=== PATIENT | female | born 1985 | race Caucasian/White ===

== ENCOUNTER 2018-07-27 15:44 | Emergency (ER) | payer OTHER ==
--- OUTSIDE RECORDS SUMMARY | 2018-07-27 16:01 | XMS REPORT ---
:1985 External Reference #:[id number] Author Organization [employer] Address [address] [place] [address] [place] [address] Phone [phone] Care Team Providers Name Role Phone Karen Aragon MD Primary Care Physician Unavailable Payers Type Date Identification Numbers Payment Provider Subscriber Commercial Effective: Policy Number: [id number] Clark[employer] Christen Jacinto 2017 Medicaid PayID: [id number] [address] [address] [place] [address] Problems Date Description Provider Status Onset: 04/17/2018 Opioid abuse George Lima M.D.,FACP Active Onset: 04/17/2018 Viral hepatitis C George Lima M.D.,FACP Active Note: hospitalized w/ jaundice 2015 Onset: 04/17/2018 Major depressive disorder George Lima M.D.,FACP Active Onset: 06/12/2018 Moderate cigarette smoker George Lima M.D.,FACP Active (10-19 cigs/day) Family History Date Family Member(s) Problem(s) Comments General Cancer, Prostate Father 56 Father Alcoholism Father Depression Mother 56 Mother Hypertension First Son 4 First Daughter 16 First Brother 36 Second Brother 18 First Sister 19 : (age 82 Years) Maternal Grandmother due to Sudden Social History Type Date Description Comments Marital Status Occupation Disabled Cigarette Use 04/17/2018 Heavy tobacco smoker (more than 10 cigarettes/day) ETOH Use 04/17/2018 Denies alcohol use Smoking Patient is a current smoker, smokes every day Recreational Drug Use Formerly addicted to IV drugs Exercise Type/Frequency Does not exercise Contraceptive Methods Esure implant General Hx Text 3 children Sexual Hx text sexually active w/ Allergies, Adverse Reactions, Alerts Date Description Reaction Status Severity Comments 08/20/2012 Sulfa rash active 08/20/2012 Bactrim rash active 08/20/2012 Clindamycin rash active Medications Medication Date Status Form Strength Qnty SIG Indications Ordering Provider Venlafaxine HCL 07/17/20 Active Caps ER 150mg 30caps 1 po F33.1 Nik Castillo ER 18 24HR qam Masha Lima,FACP F11.20 Suboxone 07/17/2018 Active Film 8-2mg 28units 1 strip George Castillo twice [place], day Masha,FACP No Active 04/17/2018 - Hx Unknown Medications 04/17/2018 Venlafaxine HCL 04/17/2018 - Hx Caps ER 37.5mg 90caps 3 tabs by F33. George Castillo ER 07/17/2018 24HR mouth 1 Janie, every day Masha,FACP F11.20 Suboxone 04/17/2018 - Hx Film 12-3mg 14units 1 strip George Castillo 07/17/2018 once a day Masha Lima,FACP Trinessa - Hx Tablets 0.18/0.215/ 1month 1 po qd Mahesh, 04/17/2018 0.25 mg-3 MD Karen Effexor - Hx Tablets 225mg 90tabs 1 po qd Mahesh, 04/17/2018 MD Karen Multi-Day - Hx Tablets 1 po qd Mahesh, Vitamins 04/17/2018 MD Karen Vicodin - Hx Tablets 5-500mg 50tabs 1-2 tablets Unknown 04/17/2018 every 4-6 hours as needed Flexeril - Hx Tablets 10mg 60tabs 1 po tid prn Unknown 04/17/2018 Immunizations CPT Code Status Date Vaccine Lot # [id number] Given 07/17/2018 Influenza Virus Vaccine, Quadrivalent, Split, [id number] Preservative Free Vital Signs Date Vital Result Comment 07/17/2018 Height 64 inches 5'4" Weight 173.00 lb Heart Rate 71 /min BP Systolic Sitting 112 mmHg BP Diastolic Sitting 60 mmHg Body Temperature 99.1 F O2 % BldC Oximetry 95 % BMI (Body Mass Index) 29.7 kg/m2 06/12/2018 Height 64 inches 5'4" Weight 168.00 lb Heart Rate 95 /min BP Systolic Sitting 110 mmHg BP Diastolic Sitting 60 mmHg Body Temperature 97.8 F O2 % BldC Oximetry 98 % BMI (Body Mass Index) 28.8 kg/m2 05/18/2018 Height 64 inches 5'4" Weight 172.00 lb Heart Rate 107 /min BP Systolic 112 mmHg BP Diastolic 70 mmHg O2 % BldC Oximetry 97 % BMI (Body Mass Index) 29.5 kg/m2 04/17/2018 Height 64 inches 5'4" Weight 169.50 lb Heart Rate 61 /min BP Systolic 109 mmHg BP Diastolic 59 mmHg Body Temperature 97.4 F O2 % BldC Oximetry 100 % BMI (Body Mass Index) 29.1 kg/m2 08/20/2012 Weight 170.00 lb Heart Rate 86 /min BP Systolic Sitting 128 mmHg BP Diastolic Sitting 88 mmHg Results Test Date Test Result H/L Range Note Laboratory test finding 06/19/2018 Hepatitis C Rna TNP () 1 Quantitative Hepatitis B Mac AB Titer 06/19/2018 Hepatitis B Surface AB Immune Immune Hep B Surf AB Level 82.17 mIU/mL >12 HIV 1/2 AB Evaluation 06/19/2018 HIV 1 2 Antibody Nonreactive Nonreactive 2 Protein Electrophoresis 06/19/2018 Total Protein(Pep) 8.1 g/dL 6.3 - 7.9 Albumin 3.8 g/dL 3.4-4.7 Alpha-1 Globulin 0.4 g/dL 0.1-0.3 Alpha-2 Globulin 1.1 g/dL 0.6-1.0 Beta Globulin 1.0 g/dL 0.7-1.2 Gamma Globulin 1.9 g/dL 0.6-1.6 Albumin/Globulin Ratio 0.87 Impression See Comment 3 Lipid Profile (Trig/Chol/HDL) 06/19/2018 Triglycerides 101 mg/dL 4 Cholesterol 221 mg/dL 5 HDL Cholesterol 56.9 mg/dL 6 LDL Cholesterol 144 mg/dL 7 Laboratory test finding 06/19/2018 Glucose 83 mg/dL 70-100 Drug Abuse 20 Urine 05/18/2018 Urine Amphetamine Negative ng/mL 8 Urine Barbiturates Negative ng/mL 9 Urine Benzodiazepines Negative ng/mL 10 Urine Cocaine Negative ng/mL 11 Urine Phencyclidine Negative ng/mL Cutoff: 25 Urine Tetrahydrocannabinol Negative ng/mL Cutoff: 50 12 Creatinine, Urine 93.9 mg/dL Specific Kam[place] 1.011 pH 7.7 Oxidants Negative 13 Adulterants Comment Normal Codeine, Ur Not Detected ng/mL Cutoff: 25 14 Uiqokkd-3-inaz-glucuronide, Ur Not Detected ng/mL 15 Morphine, Ur Not Detected ng/mL Cutoff: 25 16 Jshlegml-6-ujif-glucuronide, U Not Detected ng/mL 17 6-monoacetylmorphine, Ur Not Detected ng/mL Cutoff: 25 18 Hydrocodone, Ur Not Detected ng/mL Cutoff: 25 19 Norhydrocodone, Ur Not Detected ng/mL Cutoff: 25 20 Dihydrocodeine, Ur Not Detected ng/mL Cutoff: 25 21 Hydromorphone, Ur Not Detected ng/mL Cutoff: 25 22 Mrgispibajcpd7afptomxgpqnlrft Not Detected ng/mL 23 Oxycodone, Ur Not Detected ng/mL Cutoff: 25 24 Noroxycodone, Ur Not Detected ng/mL Cutoff: 25 25 Oxymorphone, Ur Not Detected ng/mL Cutoff: 25 26 Aneqzmsyisv-3-zuzc-glucuronide Not Detected ng/mL 27 Noroxymorphone, Ur Present ng/mL Cutoff: 25 28 Fentanyl, Ur Not Detected ng/mL Cutoff: 2 29 Norfentanyl, Ur Not Detected ng/mL Cutoff: 2 30 Meperidine, Ur Not Detected ng/mL Cutoff: 25 31 Normeperidine, Ur Not Detected ng/mL Cutoff: 25 32 Naloxone, Ur Not Detected ng/mL Cutoff: 25 33 Wbhovcov-0-vuzo-glucuronide, U Present ng/mL 34 Methadone, Ur Not Detected ng/mL Cutoff: 25 35 Eddp, Ur Not Detected ng/mL Cutoff: 25 36 Propoxyphene, Ur Not Detected ng/mL Cutoff: 25 37 Norpropoxyphene, Ur Not Detected ng/mL Cutoff: 25 38 Tramadol, Ur Not Detected ng/mL Cutoff: 25 39 O-desmethyltramadol, Ur Not Detected ng/mL Cutoff: 25 40 Tapentadol, Ur Not Detected ng/mL Cutoff: 25 41 N-desmethyltapentadol, Ur Not Detected ng/mL Cutoff: 50 42 Adrvwurbsk-yoxd-qkqecrpnqfs, U Not Detected ng/mL 43 Buprenorphine, Ur Present ng/mL Cutoff: 5 44 Norbuprenorphine, Ur Present ng/mL Cutoff: 5 45 Norbuprenorphine glucuronide Present ng/mL Cutoff: 20 46 Opioid Interpretation See Comment 47 Drug Abuse 20 Urine 04/17/2018 Urine Amphetamine Negative ng/mL 48 Urine Barbiturates Negative ng/mL 49 Urine Benzodiazepines Negative ng/mL 50 Urine Cocaine Negative ng/mL 51 Urine Phencyclidine Negative ng/mL Cutoff: 25 Urine Tetrahydrocannabinol Negative ng/mL Cutoff: 50 52 Creatinine, Urine 58.0 mg/dL Specific Kamiah 1.011 pH 7.4 Oxidants Negative 53 Adulterants Comment Normal Codeine, Ur Not Detected ng/mL Cutoff: 25 54 Dkzetyq-3-dxpq-glucuronide, Ur Not Detected ng/mL 55 Morphine, Ur Not Detected ng/mL Cutoff: 25 56 Htismuky-4-dluu-glucuronide, U Not Detected ng/mL 57 6-monoacetylmorphine, Ur Not Detected ng/mL Cutoff: 25 58 Hydrocodone, Ur Not Detected ng/mL Cutoff: 25 59 Norhydrocodone, Ur Not Detected ng/mL Cutoff: 25 60 Dihydrocodeine, Ur Not Detected ng/mL Cutoff: 25 61 Hydromorphone, Ur Not Detected ng/mL Cutoff: 25 62 Kclyqpzflwtpv4ngbcolcxvjfpfvz Not Detected ng/mL 63 Oxycodone, Ur Not Detected ng/mL Cutoff: 25 64 Noroxycodone, Ur Not Detected ng/mL Cutoff: 25 65 Oxymorphone, Ur Not Detected ng/mL Cutoff: 25 66 Xujmneycyyd-3-xxbh-glucuronide Not Detected ng/mL 67 Noroxymorphone, Ur Not Detected ng/mL Cutoff: 25 68 Fentanyl, Ur Not Detected ng/mL Cutoff: 2 69 Norfentanyl, Ur Present ng/mL Cutoff: 2 70 Meperidine, Ur Not Detected ng/mL Cutoff: 25 71 Normeperidine, Ur Not Detected ng/mL Cutoff: 25 72 Naloxone, Ur Not Detected ng/mL Cutoff: 25 73 Vujdrfes-2-ogzs-glucuronide, U Not Detected ng/mL 74 Methadone, Ur Not Detected ng/mL Cutoff: 25 75 Eddp, Ur Not Detected ng/mL Cutoff: 25 76 Propoxyphene, Ur Not Detected ng/mL Cutoff: 25 77 Norpropoxyphene, Ur Not Detected ng/mL Cutoff: 25 78 Tramadol, Ur Not Detected ng/mL Cutoff: 25 79 O-desmethyltramadol, Ur Not Detected ng/mL Cutoff: 25 80 Tapentadol, Ur Not Detected ng/mL Cutoff: 25 81 N-desmethyltapentadol, Ur Not Detected ng/mL Cutoff: 50 82 Heorzqldcf-tqgv-mfogbyywbqh, U Not Detected ng/mL 83 Buprenorphine, Ur Not Detected ng/mL Cutoff: 5 84 Norbuprenorphine, Ur Present ng/mL Cutoff: 5 85 Norbuprenorphine glucuronide Present ng/mL Cutoff: 20 86 Opioid Interpretation See Comment 87 1 HCV RNA Detect/Quant, S was cancelled on 06/20/2018 at 09:59; Test is cancelled due to insufficient specimen volume. Please submit a frozen specimen under separate order. Test Performed by: [facility] [address] [place] [address] 2 It is recognized that currently available assays for the detection of antibodies to HIV-1 and/or HIV-2 may not detect all infected individuals. HIV antibodies may be undetectable in some stages of the infection and in some clinical conditions. The performance of this assay has not been established for populations of infants or children. Assayed by Chemiluminescence Microparticle Immunoassay on the Siemens Advia Centaur CP. Values obtained with different methods or kits cannot be used interchangeably.The diagnostic specificity of the ADVIA Centaur 1/O/2 Enhanced assay in the low risk population was 99.90% (6052/6058) with a 95% confidence interval of 99.78 to 99.96%. 3 RESULT: Polyclonal hypergammaglobulinemia Test Performed by: [facility] [address] [place] [address] 4 Desirable: <150 Borderline High: 150-199 High: 200-499 Very High: >500 5 Desirable: <200 Borderline High: 200-239 High: >239 6 Low: <40 Desirable: 40-60 High: >60 7 Desirable: <100 Near Optimal: 100-129 Borderline High: 130-159 High: 160-189 Very High: >189 8 REFERENCE VALUE Cutoff: 500 9 REFERENCE VALUE Cutoff: 200 10 REFERENCE VALUE Cutoff: 100 11 REFERENCE VALUE Cutoff: 150 12 ADDITIONAL INFORMATION This report is intended for use in clinical monitoring or management of patients. It is not intended for use in employment-related testing. 13 REFERENCE VALUE Cutoff: 200 mg/L 14 Tylenol 3 15 Metabolite of codeine REFERENCE VALUE Cutoff: 100 16 Mary Duffy, Contin; Also a minor metabolite (10%) of codeine and can be seen in low concentrations (<2,000 ng/mL) with poppy seed ingestion. 17 Metabolite of morphine REFERENCE VALUE Cutoff: 100 18 Metabolite of heroin 19 Lortab, [place], Vicodin; Also a very minor metabolite of codeine and impurity (<1%) of oxycodone. 20 Metabolite of hydrocodone 21 Metabolite of hydrocodone 22 Dilaudid, Exalgo; Also a metabolite of hydrocodone and a minor (<5%) metabolite of morphine. 23 Metabolite of hydromorphone REFERENCE VALUE Cutoff: 100 24 Endocet, Percocet, Oxycontin 25 Metabolite of oxycodone 26 Numorphan, Opana; Also a metabolite of oxycodone. 27 Metabolite of oxymorphone REFERENCE VALUE Cutoff: 100 28 Metabolite of oxymorphone 29 Actiq, Duragesic, Fentora 30 Metabolite of fentanyl 31 Demerol 32 Metabolite of meperidine 33 Narcan 34 Metabolite of naloxone REFERENCE VALUE Cutoff: 100 35 Dolophine 36 Metabolite of methadone 37 Darvon, Darvocet 38 Metabolite of propoxyphene 39 Tradol, Ultram, Ultracet 40 Metabolite of tramadol 41 Nucynta 42 Metabolite of tapentadol 43 Metabolite of tapentadol REFERENCE VALUE Cutoff: 100 44 Buprenex, Suboxone 45 Metabolite of buprenorphine 46 Metabolite of buprenorphine 47 Test detected the presence of buprenorphine and its metabolites (norbuprenorphine and norbuprenorphine glucuronide) along with naloxone metabolites (yeyfqibg-3-kckp-glucuronide and noroxymorphone/nornaloxone). Suspect use of buprenorphine with naloxone (e.g. Suboxone) within the past three days. ADDITIONAL INFORMATION This test was developed and its performance characteristics determined by [facility] in a manner consistent with CLIA requirements. This test has not been cleared or approved by the U.S. Food and Drug Administration. Test Performed by: [facility] [address] [place] [address] 48 REFERENCE VALUE Cutoff: 500 49 REFERENCE VALUE Cutoff: 200 50 REFERENCE VALUE Cutoff: 100 51 REFERENCE VALUE Cutoff: 150 52 ADDITIONAL INFORMATION This report is intended for use in clinical monitoring or management of patients. It is not intended for use in employment-related testing. 53 REFERENCE VALUE Cutoff: 200 mg/L 54 Tylenol 3 55 Metabolite of codeine REFERENCE VALUE Cutoff: 100 56 Mary Duffy, Contin; Also a minor metabolite (10%) of codeine and can be seen in low concentrations (<2,000 ng/mL) with poppy seed ingestion. 57 Metabolite of morphine REFERENCE VALUE Cutoff: 100 58 Metabolite of heroin 59 Lortab, [place], Vicodin; Also a very minor metabolite of codeine and impurity (<1%) of oxycodone. 60 Metabolite of hydrocodone 61 Metabolite of hydrocodone 62 Dilaudid, Exalgo; Also a metabolite of hydrocodone and a minor (<5%) metabolite of morphine. 63 Metabolite of hydromorphone REFERENCE VALUE Cutoff: 100 64 Endocet, Percocet, Oxycontin 65 Metabolite of oxycodone 66 Numorphan, Opana; Also a metabolite of oxycodone. 67 Metabolite of oxymorphone REFERENCE VALUE Cutoff: 100 68 Metabolite of oxymorphone 69 Actiq, Duragesic, Fentora 70 Metabolite of fentanyl 71 Demerol 72 Metabolite of meperidine 73 Narcan 74 Metabolite of naloxone REFERENCE VALUE Cutoff: 100 75 Dolophine 76 Metabolite of methadone 77 Darvon, Darvocet 78 Metabolite of propoxyphene 79 Tradol, Ultram, Ultracet 80 Metabolite of tramadol 81 Nucynta 82 Metabolite of tapentadol 83 Metabolite of tapentadol REFERENCE VALUE Cutoff: 100 84 Buprenex, Suboxone 85 Metabolite of buprenorphine 86 Metabolite of buprenorphine 87 Test detected the presence of norbuprenorphine and norbuprenorphine glucuronide which are metabolites of buprenorphine. Suspect use of buprenorphine within the past three days. Test detected the presence of norfentanyl (metabolite of fentanyl) only. Suspect use of fentanyl within the past three days. ADDITIONAL INFORMATION This test was developed and its performance characteristics determined by [facility] in a manner consistent with CLIA requirements. This test has not been cleared or approved by the U.S. Food and Drug Administration. Test Performed by: [facility] [address] [place] [address] Procedures Description No Information Encounters Type Date Location Provider CPT E/M Dx Office Visit 07/17/2018 [facility] George Lima, [address] F11.20 2:00p - Marquita Flanagan,FACP B18.2 Office Visit 06/12/2018 2:40p [facility] George Lima, 27711 F11.20 - Marquita Flanagan,FACP B18.2 F33.1 Office Visit 05/18/2018 2:40p [facility] Internal George Lima, 15563 F11.20 Medicine - lena Voss M.D.,FACP B18.2 F33.1 Office Visit 04/17/2018 3:40p [facility] George Lima, [address]27 F11.20 - Marquita Flanagan,FACP B18.2 F33.1 Office Visit 09/03/2012 2:30p [facility] Scott Montes M.D. 43146 724.2 AT [place] Office Visit 08/20/2012 2:30p [facility] Scott Montes M.D. 01889 724.2 AT [place] Plan of Care Future Appointment(s):08/28/2018 2:00 pm - George Lima M.D.,FACP at [facility] Ldhaxhghv60/18/2018 - George Lima M.D.,FACPF11.20 Opioid dependence, uncomplicatedNew Medication:Venlafaxine HCL ER 150 mgComments :Patient doing well on buprenorphine/naltrexone, no major cravings, no relapse on opiates. [employer] PROGRAM COORDINATOR checked, patient not obtaining opiates through other providers.UDS up to date. I have changed your suboxoneprescription to 8 MG strips. You may take up to two strips daily. Please continue to follow up with AAA meetings and counseling. I have increased your Venlafaxine medication to 1 tablet of Venlafaxine 150 MG daily.B18.2 Chronic viral hepatitis CComments: Please complete bloodwork to check for Hepatitis C as soon as you can. We will give you a call regarding your results and discuss treatment options if necessary.
[2018-07-27 16:11] VITALS: BP 107/51
--- NOTE | 2018-07-27 16:18 | UC ---
General HPI - HPI Summary HPI Summary: per health service worker "c/o "waking up 9/25 am with swelling of right hand/fingers and right foot; not painful -no h/o injury" -She reports that she had this earlier this year and was treated successfully with oral doxycycline. She complains of feeling tired over the past few days as well. She thinks her right foot may be due to a spider or bug bite. She denies any IV drug use. Does admit to IV drug use prior to 9 months ago. States she has been clean since then and is on Suboxone. No fevers or chills. No discharge. - History of Current Complaint Chief Complaint: UCUpperExtremity Stated Complaint: RIGHT HAND AND FOOT SWELLING Time Seen by Provider: 07/27/18 16:17 Hx Last Menstrual Period: had baby in Sep, no menses yet Pain Intensity: 0 - Allergy/Home Medications Allergies/Adverse Reactions: Allergies Allergy/AdvReac Type Severity Reaction Status Date / Time clindamycin Allergy Intermediate Rash Verified 07/27/18 16:13 Sulfa (Sulfonamide Allergy Intermediate Rash Verified 07/27/18 16:13 Antibiotics) Home Medications: Home Medications Buprenorphine HCl/Naloxone HCl [Suboxone 8 mg-2 mg Sl Film] 1 mis SL BID [History Confirmed 07/27/18] Venlafaxine ER (NF) [Effexor ER (NF)] 150 mg PO DAILY 07/27/18 [History Confirmed 07/27/18] PMH/Surg Hx/FS Hx/Imm Hx Previously Healthy: Yes GI/ History: Other - untreated hepatitis C. Opiate abuse. History of IV drug use. Other GI/ History: untreated hep C, IV drug use history, Opiate History. 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 Eyes: Negative ENT: Negative Respiratory: Negative Cardiovascular: Negative Gastrointestinal: Negative Genitourinary: Negative Motor: Negative Neurovascular: Negative Musculoskeletal: Negative Neurological: Negative Psychological: Negative Is Patient Immunocompromised?: No All Other Systems Reviewed And Are Negative: Yes Physical Exam Triage Information Reviewed: Yes Appearance: Well-Appearing, No Pain Distress, Well-Nourished Vital Signs: Initial Vital Signs Temp 97.8 F 07/27/18 16:02 Pulse 71 07/27/18 16:02 Resp 17 07/27/18 16:02 BP 107/51 07/27/18 16:02 Pulse Ox 100 07/27/18 16:02 Eye Exam: Normal ENT Exam: Normal Neck exam: Normal Neck: Positive: Supple, Nontender, No Lymphadenopathy Respiratory Exam: Normal Respiratory: Positive: Lungs clear, Normal breath sounds, No respiratory distress, No accessory muscle use Cardiovascular Exam: Normal Cardiovascular: Positive: RRR, No Murmur, Pulses Normal Abdomen Description: Positive: Nontender, Soft Musculoskeletal: Positive: Other: - Right extensor hand with mild nonpitting edema. It is slightly warm to touch. Sensation is intact. Full range of motion. Right foot with small little erythematous spots that could be bug bites. Trace nonpitting edema compared to left foot. Full range of motion, capillary refill brisk. Sensation intact. Strength intact. Neurological Exam: Normal Psychological Exam: Normal Skin Exam: Normal Course/Dx - Course Course Of Treatment: Probable right hand mild cellulitis, right foot minimal edema likely due to bug bite. - Differential Dx - Multi-Symptom Differential Diagnoses: Other - edema, cellulitis Provider Diagnoses: right hand cellulitis Discharge - Sign-Out/Discharge Documenting (check all that apply): Patient Departure All imaging exams completed and their final reports reviewed: No Studies - Discharge Plan Condition: Stable Disposition: HOME Prescriptions: Doxycycline Monohydrate 100 mg PO BID #20 cap Patient Education Materials: Cellulitis (DC) Referrals: George Lima MD [Primary Care Provider] - 4 Days Additional Instructions: Make sure to take a probiotic daily while on antibiotics to help prevent a potential complication of antibiotic use called c diff. Some well known brands that can be found OTC are florastor, align and [employer]. Make sure to complete the entire prescription unless advised otherwise by your health care provider. -If symptoms worsen you should go to the ER as you will need labwork done and possible IV antibiotics. - Billing Disposition and Condition Condition: STABLE Disposition: Home
== END 2018-07-27 16:38 | disposition home or self-care (01) ==
LOC: UCCORT 15:44
DX: L03.90 Cellulitis, unspecified (principal); Z88.1 Allergy status to other antibiotic agents; F11.10 Opioid abuse, uncomplicated; F17.210 Nicotine dependence, cigarettes, uncomplicated
CPT/HCPCS: 99212; G0463

== ENCOUNTER 2018-12-26 10:50 | Emergency (ER) | payer OTHER ==
--- OUTSIDE RECORDS SUMMARY | 2018-12-26 11:05 | XMS REPORT | Continuity of Care Document ---
:1985 External Reference #:[id number] Author Name Theresa Guido Care Team Providers Name Role Phone George Lima MD Primary Care Physician Unavailable Payers Date Identification Numbers Payment Provider Subscriber Effective: 2017 Policy Number: [id number] [employer] Medicaid Christen Jacinto PayID: [id number] [address] [address] [place] [address] Advance Directives Description No Information Available Problems Date Description Provider Status Onset: 04/17/2018 Opioid abuse George Lima M.D.,FACP Active Onset: 04/17/2018 Viral hepatitis C George Lima M.D.,VANNESA Active Note: hospitalized w/ jaundice 2015, chronic active Onset: 04/17/2018 Major depressive disorder George Lima M.D.,FACP Active Onset: 06/12/2018 Moderate cigarette smoker George Lima M.D.,FACP Active (10-19 cigs/day) Family History Date Family Member(s) Observation Comments General Cancer, Prostate Father 56 Father Alcoholism Father Depression Mother 56 Mother Hypertension First Son 4 First Daughter 16 First Brother 36 Second Brother 18 First Sister 19 : (age 82 Years) Maternal Grandmother due to Sudden Social History Type Date Description Comments Sex Unknown Marital Status Occupation Disabled Tobacco Use Reviewed: 04/17/18 Heavy tobacco smoker (more than 10 cigarettes/day) Smoking Status Reviewed: 12/25/18 Heavy tobacco smoker (more than 10 cigarettes/day) ETOH Use 04/17/2018 Denies alcohol use Tobacco Use Start: Unknown Patient is a current smoker, smokes every day Recreational Drug Use 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 daily Venlafaxine Active Caps ER 150mg 30caps 1 by [email or web address] Vazquez HCL ER 018 24HR mouth D. Burleson, every M.D.,FACP morning F11.20 Suboxone 07/17/2018 Active Film 8-2mg 28units 1 strip George Castillo sl twice Burleson, day M.D.,FACP No Active 04/17/2018 - Hx Unknown Medications 04/17/2018 Venlafaxine HCL 04/17/2018 - Hx Caps ER 37.5mg 90caps 3 tabs by Freida. George Castillo ER 07/17/2018 24HR mouth 1 Burleson, every day M.D.,FACP F11.20 Suboxone 04/17/2018 - Hx Film 12-3mg 14units 1 strip rupal Castillo 07/17/2018 once a day Janie, M.D.,FACP Trinessa - Hx Tablets 0.18/0.215/ 1month 1 [...] CPT Code Status Date Vaccine Lot # [id number] Given 09/27/2018 Hepatitis A Vaccine Adult Dosage [id number] Given 08/28/2018 Pneumonia Vaccine [id number] Given 07/17/2018 Influenza Virus Vaccine, Quadrivalent, Split, [id number] Preservative Free Vital Signs Date Vital Result Comment 12/25/2018 9:46am Height 64 inches 5'4" Weight 178.00 lb Heart Rate 60 /min BP Systolic Sitting 110 mmHg BP Diastolic Sitting 62 mmHg Respiratory Rate 14 /min Body Temperature 97.9 F BMI (Body Mass Index) 30.6 kg/m2 10/16/2018 10:59am Height 64 inches 5'4" Weight 178.00 lb Heart Rate 70 /min BP Systolic Sitting 110 mmHg BP Diastolic Sitting 70 mmHg Respiratory Rate 14 /min Body Temperature 100.0 F BMI (Body Mass Index) 30.6 kg/m2 09/27/2018 2:18pm Height 64 inches 5'4" Heart Rate 68 /min BP Systolic Sitting 112 mmHg BP Diastolic Sitting 80 mmHg Body Temperature 98.2 F O2 % BldC Oximetry 97 % 08/28/2018 1:55pm Height 64 inches 5'4" Weight 174.00 lb Heart Rate 68 /min BP Systolic 120 mmHg BP Diastolic 64 mmHg O2 % BldC Oximetry 98 % BMI (Body Mass Index) 29.9 kg/m2 07/17/2018 2:02pm Height 64 inches 5'4" Weight 173.00 lb Heart Rate 71 /min BP Systolic Sitting 112 mmHg BP Diastolic Sitting 60 mmHg Body Temperature 99.1 F O2 % BldC Oximetry 95 % BMI (Body Mass Index) 29.7 kg/m2 06/12/2018 2:57pm Height 64 inches 5'4" Weight 168.00 lb Heart Rate 95 /min BP Systolic Sitting 110 mmHg BP Diastolic Sitting 60 mmHg Body Temperature 97.8 F O2 % BldC Oximetry 98 % BMI (Body Mass Index) 28.8 kg/m2 05/18/2018 2:35pm Height 64 inches 5'4" Weight 172.00 lb Heart Rate 107 /min BP Systolic 112 mmHg BP Diastolic 70 mmHg O2 % BldC Oximetry 97 % BMI (Body Mass Index) 29.5 kg/m2 04/17/2018 3:32pm Height 64 inches 5'4" Weight 169.50 lb Heart Rate 61 /min BP Systolic 109 mmHg BP Diastolic 59 mmHg Body Temperature 97.4 F O2 % BldC Oximetry 100 % BMI (Body Mass Index) 29.1 kg/m2 08/20/2012 2:53pm Weight 170.00 lb Heart Rate 86 /min BP Systolic Sitting 128 mmHg BP Diastolic Sitting 88 mmHg Results Test Date Facility Test Result H/L Range Note Drug Abuse 11/16/2018 [facility] Urine Amphetamine Negative ng/ mL 1 [address] [place] [address] [phone] Urine Barbiturates Negative ng/mL 2 Urine Benzodiazepines Negative ng/mL 3 Urine Cocaine Negative ng/mL 4 Urine Phencyclidine Negative ng/mL Cutoff: 25 Urine Tetrahydrocannabinol Negative ng/mL Cutoff: 50 5 Creatinine, Urine 261.4 mg/dL Specific Coral 1.022 pH 5.5 Oxidants Negative 6 Adulterants Comment Normal Codeine, Ur Not Detected ng/mL Cutoff: 25 7 Knlepyu-4-ajfj-glucuronide, Ur Not Detected ng/mL 8 Morphine, Ur Not Detected ng/mL Cutoff: 25 9 Xmypxhbn-4-xsap-glucuronide, U Not Detected ng/mL 10 6-monoacetylmorphine, Ur Not Detected ng/mL Cutoff: 25 11 Hydrocodone, Ur Not Detected ng/mL Cutoff: 25 12 Norhydrocodone, Ur Not Detected ng/mL Cutoff: 25 13 Dihydrocodeine, Ur Not Detected ng/mL Cutoff: 25 14 Hydromorphone, Ur Not Detected ng/mL Cutoff: 25 15 Exysxwqlmjico0xndprsnaoiyfzfb Not Detected ng/mL 16 Oxycodone, Ur Not Detected ng/mL Cutoff: 25 17 Noroxycodone, Ur Not Detected ng/mL Cutoff: 25 18 Oxymorphone, Ur Not Detected ng/mL Cutoff: 25 19 Zjlwimstudw-6-nxdl-glucuronide Not Detected ng/mL 20 Noroxymorphone, Ur Present ng/mL Abnormal Cutoff: 25 21 Fentanyl, Ur Not Detected ng/mL Cutoff: 2 22 Norfentanyl, Ur Not Detected ng/mL Cutoff: 2 23 Meperidine, Ur Not Detected ng/mL Cutoff: 25 24 Normeperidine, Ur Not Detected ng/mL Cutoff: 25 25 Naloxone, Ur Not Detected ng/mL Cutoff: 25 26 Vprnadgb-4-tilq-glucuronide, U Present ng/mL Abnormal 27 Methadone, Ur Not Detected ng/mL Cutoff: 25 28 Eddp, Ur Not Detected ng/mL Cutoff: 25 29 Propoxyphene, Ur Not Detected ng/mL Cutoff: 25 30 Norpropoxyphene, Ur Not Detected ng/mL Cutoff: 25 31 Tramadol, Ur Not Detected ng/mL Cutoff: 25 32 O-desmethyltramadol, Ur Not Detected ng/mL Cutoff: 25 33 Tapentadol, Ur Not Detected ng/mL Cutoff: 25 34 N-desmethyltapentadol, Ur Not Detected ng/mL Cutoff: 50 35 Znvvvvbjpu-woac-ygbaoqllooy, U Not Detected ng/mL 36 Buprenorphine, Ur Present ng/mL Abnormal Cutoff: 5 37 Norbuprenorphine, Ur Present ng/mL Abnormal Cutoff: 5 38 Norbuprenorphine glucuronide Present ng/mL Abnormal Cutoff: 20 39 Opioid Interpretation See Comment 40 Laboratory 08/29/2018 [facility] Hepatitis C 084749 Abnormal Undetected 41 test finding [address] Rna Quant IU/[place] [address] [phone] Hepatitis C Genotype 3 Abnormal Undetected 42 Drug Abuse 20 07/17/2018 [facility] Urine Amphetamine Negative ng/mL [address] [place] [address] [phone] Urine Barbiturates Negative ng/mL 44 Urine Benzodiazepines Negative ng/mL 45 Urine Cocaine Negative ng/mL 46 Urine Phencyclidine Negative ng/mL Cutoff: 25 Urine Tetrahydrocannabinol Negative ng/mL Cutoff: 50 47 Creatinine, Urine 211.8 mg/dL Specific Coral 1.015 pH 6.0 Oxidants Negative 48 Adulterants Comment Normal Codeine, Ur Not Detected ng/mL Cutoff: 25 49 Pbpbwfy-3-ryyq-glucuronide, Ur Not Detected ng/mL 50 Morphine, Ur Not Detected ng/mL Cutoff: 25 51 Ztkjjokq-4-fzho-glucuronide, U Not Detected ng/mL 52 6-monoacetylmorphine, Ur Not Detected ng/mL Cutoff: 25 53 Hydrocodone, Ur Not Detected ng/mL Cutoff: 25 54 Norhydrocodone, Ur Not Detected ng/mL Cutoff: 25 55 Dihydrocodeine, Ur Not Detected ng/mL Cutoff: 25 56 Hydromorphone, Ur Not Detected ng/mL Cutoff: 25 57 Atkydcipcsqht2rleqtpxqgrovmzr Not Detected ng/mL 58 Oxycodone, Ur Not Detected ng/mL Cutoff: 25 59 Noroxycodone, Ur Not Detected ng/mL Cutoff: 25 60 Oxymorphone, Ur Not Detected ng/mL Cutoff: 25 61 Boqwelzjclr-8-gwiw-glucuronide Not Detected ng/mL 62 Noroxymorphone, Ur Not Detected ng/mL Cutoff: 25 63 Fentanyl, Ur Not Detected ng/mL Cutoff: 2 64 Norfentanyl, Ur Not Detected ng/mL Cutoff: 2 65 Meperidine, Ur Not Detected ng/mL Cutoff: 25 66 Normeperidine, Ur Not Detected ng/mL Cutoff: 25 67 Naloxone, Ur Not Detected ng/mL Cutoff: 25 68 Csfmzymc-0-uxjg-glucuronide, U Present ng/mL Abnormal 69 Methadone, Ur Not Detected ng/mL Cutoff: 25 70 Eddp, Ur Not Detected ng/mL Cutoff: 25 71 Propoxyphene, Ur Not Detected ng/mL Cutoff: 25 72 Norpropoxyphene, Ur Not Detected ng/mL Cutoff: 25 73 Tramadol, Ur Not Detected ng/mL Cutoff: 25 74 O-desmethyltramadol, Ur Not Detected ng/mL Cutoff: 25 75 Tapentadol, Ur Not Detected ng/mL Cutoff: 25 76 N-desmethyltapentadol, Ur Not Detected ng/mL Cutoff: 50 77 Ohencahjqo-fvjb-qpicchrhhkj, U Not Detected ng/mL 78 Buprenorphine, Ur See Comment ng/mL Cutoff: 5 79 Norbuprenorphine, Ur Present ng/mL Abnormal Cutoff: 5 80 Norbuprenorphine glucuronide Present ng/mL Abnormal Cutoff: 20 81 Opioid Interpretation See Comment 82 Laboratory test 06/19/2018 [facility] Hepatitis C Rna TNP () [address] [place] [address] [phone] Hepatitis B Mac 06/19/2018 [facility] Hepatitis B Immune Immune AB Titer [address] [place] [address] [phone] Hep B Surf AB Level 82.17 mIU/mL >12 HIV 1/2 AB 06/19/2018 [facility] HIV 1 2 Nonreactive Nonreactive [address] [place] [address] [phone] Protein 06/19/2018 [facility] Total 8.1 g/dL Abnorma 6.3 - 7.[address] [place] [address] ms) [phone] Albumin 3.8 g/dL 3.4-4.7 Alpha-1 Globulin 0.4 g/dL Abnormal 0.1-0.3 Alpha-2 Globulin 1.1 g/dL Abnormal 0.6-1.0 Beta Globulin 1.0 g/dL 0.7-1.2 Gamma Globulin 1.9 g/dL Abnormal 0.6-1.6 Albumin/Globulin Ratio 0.87 Impression See Comment 85 Lipid Profile 06/19/2018 [facility] Triglycerides 101 mg/dL 86 (Trig/Chol/HDL) [address] [place] [address] [phone] Cholesterol 221 mg/dL 87 HDL Cholesterol 56.9 mg/dL 88 LDL Cholesterol 144 mg/dL 89 Laboratory test 06/19/2018 [facility] Glucose 83 mg/dL N 70- [address] [place] [address] [phone] Drug Abuse 20 05/18/2018 [facility] Urine Negative [address] Amphetamine ng/[place] [address] [phone] Urine Barbiturates Negative ng/mL 91 Urine Benzodiazepines Negative ng/mL 92 Urine Cocaine Negative ng/mL 93 Urine Phencyclidine Negative ng/mL Cutoff: 25 Urine Tetrahydrocannabinol Negative ng/mL Cutoff: 50 94 Creatinine, Urine 93.9 mg/dL Specific Coral 1.011 pH 7.7 Oxidants Negative 95 Adulterants Comment Normal Codeine, Ur Not Detected ng/mL Cutoff: 25 96 Gmwnccp-0-ccjv-glucuronide, Ur Not Detected ng/mL 97 Morphine, Ur Not Detected ng/mL Cutoff: 25 98 Cizspjwy-3-iamk-glucuronide, U Not Detected ng/mL 99 6-monoacetylmorphine, Ur Not Detected ng/mL Cutoff: 25 100 Hydrocodone, Ur Not Detected ng/mL Cutoff: 25 101 Norhydrocodone, Ur Not Detected ng/mL Cutoff: 25 102 Dihydrocodeine, Ur Not Detected ng/mL Cutoff: 25 103 Hydromorphone, Ur Not Detected ng/mL Cutoff: 25 104 Oltqmwlmjgttr7jkfppfkuapcvlzd Not Detected ng/mL 105 Oxycodone, Ur Not Detected ng/mL Cutoff: 25 106 Noroxycodone, Ur Not Detected ng/mL Cutoff: 25 107 Oxymorphone, Ur Not Detected ng/mL Cutoff: 25 108 Leieqcjtdvh-9-vacc-glucuronide Not Detected ng/mL 109 Noroxymorphone, Ur Present ng/mL Abnormal Cutoff: 25 110 Fentanyl, Ur Not Detected ng/mL Cutoff: 2 111 Norfentanyl, Ur Not Detected ng/mL Cutoff: 2 112 Meperidine, Ur Not Detected ng/mL Cutoff: 25 113 Normeperidine, Ur Not Detected ng/mL Cutoff: 25 114 Naloxone, Ur Not Detected ng/mL Cutoff: 25 115 Skeeqwtj-1-wuyt-glucuronide, U Present ng/mL Abnormal 116 Methadone, Ur Not Detected ng/mL Cutoff: 25 117 Eddp, Ur Not Detected ng/mL Cutoff: 25 118 Propoxyphene, Ur Not Detected ng/mL Cutoff: 25 119 Norpropoxyphene, Ur Not Detected ng/mL Cutoff: 25 120 Tramadol, Ur Not Detected ng/mL Cutoff: 25 121 O-desmethyltramadol, Ur Not Detected ng/mL Cutoff: 25 122 Tapentadol, Ur Not Detected ng/mL Cutoff: 25 123 N-desmethyltapentadol, Ur Not Detected ng/mL Cutoff: 50 124 Gilvhgvwpw-cwip-fkyjieaqiln, U Not Detected ng/mL 125 Buprenorphine, Ur Present ng/mL Abnormal Cutoff: 5 126 Norbuprenorphine, Ur Present ng/mL Abnormal Cutoff: 5 127 Norbuprenorphine glucuronide Present ng/mL Abnormal Cutoff: 20 128 Opioid Interpretation See Comment 129 Drug Abuse 04/17/2018 [facility] Urine Amphetamine Negative ng/ mL 130 [address] [place] [id number] [phone] Urine Barbiturates Negative ng/mL 131 Urine Benzodiazepines Negative ng/mL 132 Urine Cocaine Negative ng/mL 133 Urine Phencyclidine Negative ng/mL Cutoff: 25 Urine Tetrahydrocannabinol Negative ng/mL Cutoff: 50 134 Creatinine, Urine 58.0 mg/dL Specific Coral 1.011 pH 7.4 Oxidants Negative 135 Adulterants Comment Normal Codeine, Ur Not Detected ng/mL Cutoff: 25 136 Gtknqtl-8-riwz-glucuronide, Ur Not Detected ng/mL 137 Morphine, Ur Not Detected ng/mL Cutoff: 25 138 Mojuyxbt-6-hqug-glucuronide, U Not Detected ng/mL 139 6-monoacetylmorphine, Ur Not Detected ng/mL Cutoff: 25 140 Hydrocodone, Ur Not Detected ng/mL Cutoff: 25 141 Norhydrocodone, Ur Not Detected ng/mL Cutoff: 25 142 Dihydrocodeine, Ur Not Detected ng/mL Cutoff: 25 143 Hydromorphone, Ur Not Detected ng/mL Cutoff: 25 144 Wptzdsowmzxaj3mygrwkpfwosnesc Not Detected ng/mL 145 Oxycodone, Ur Not Detected ng/mL Cutoff: 25 146 Noroxycodone, Ur Not Detected ng/mL Cutoff: 25 147 Oxymorphone, Ur Not Detected ng/mL Cutoff: 25 148 Slogjogkugt-9-wgls-glucuronide Not Detected ng/mL 149 Noroxymorphone, Ur Not Detected ng/mL Cutoff: 25 150 Fentanyl, Ur Not Detected ng/mL Cutoff: 2 151 Norfentanyl, Ur Present ng/mL Abnormal Cutoff: 2 152 Meperidine, Ur Not Detected ng/mL Cutoff: 25 153 Normeperidine, Ur Not Detected ng/mL Cutoff: 25 154 Naloxone, Ur Not Detected ng/mL Cutoff: 25 155 Lhrlwpka-1-pamy-glucuronide, U Not Detected ng/mL 156 Methadone, Ur Not Detected ng/mL Cutoff: 25 157 Eddp, Ur Not Detected ng/mL Cutoff: 25 158 Propoxyphene, Ur Not Detected ng/mL Cutoff: 25 159 Norpropoxyphene, Ur Not Detected ng/mL Cutoff: 25 160 Tramadol, Ur Not Detected ng/mL Cutoff: 25 161 O-desmethyltramadol, Ur Not Detected ng/mL Cutoff: 25 162 Tapentadol, Ur Not Detected ng/mL Cutoff: 25 163 N-desmethyltapentadol, Ur Not Detected ng/mL Cutoff: 50 164 Cmihzxcdso-eqae-wvbbwmtfufz, U Not Detected ng/mL 165 Buprenorphine, Ur Not Detected ng/mL Cutoff: 5 166 Norbuprenorphine, Ur Present ng/mL Abnormal Cutoff: 5 167 Norbuprenorphine glucuronide Present ng/mL Abnormal Cutoff: 20 168 Opioid Interpretation See Comment 169 1 REFERENCE VALUE Cutoff: 500 2 REFERENCE VALUE Cutoff: 200 3 REFERENCE VALUE Cutoff: 100 4 REFERENCE VALUE Cutoff: 150 5 ADDITIONAL INFORMATION This report is intended for use in clinical monitoring or management of patients. It is not intended for use in employment-related testing. 6 REFERENCE VALUE Cutoff: 200 mg/L 7 Tylenol 3 8 Metabolite of codeine REFERENCE VALUE Cutoff: 100 9 Mary Duffy, MS Contin; Also a minor metabolite (10%) of codeine and can be seen in low concentrations (<2,000 ng/mL) with poppy seed ingestion. 10 Metabolite of morphine REFERENCE VALUE Cutoff: 100 11 Metabolite of heroin 12 Lortab, Charlotte, Vicodin; Also a very minor metabolite of codeine and impurity (<1%) of oxycodone. 13 Metabolite of hydrocodone 14 Metabolite of hydrocodone 15 Dilaudid, Exalgo; Also a metabolite of hydrocodone and a minor (<5%) metabolite of morphine. 16 Metabolite of hydromorphone REFERENCE VALUE Cutoff: 100 17 Endocet, Percocet, Oxycontin 18 Metabolite of oxycodone 19 Numorphan, Opana; Also a metabolite of oxycodone. 20 Metabolite of oxymorphone REFERENCE VALUE Cutoff: 100 21 Metabolite of oxymorphone 22 Actiq, Duragesic, Fentora 23 Metabolite of fentanyl 24 Demerol 25 Metabolite of meperidine 26 Narcan 27 Metabolite of naloxone REFERENCE VALUE Cutoff: 100 28 Dolophine 29 Metabolite of methadone 30 Darvon, Darvocet 31 Metabolite of propoxyphene 32 Tradol, Ultram, Ultracet 33 Metabolite of tramadol 34 Nucynta 35 Metabolite of tapentadol 36 Metabolite of tapentadol REFERENCE VALUE Cutoff: 100 37 Buprenex, Suboxone 38 Metabolite of buprenorphine 39 Metabolite of buprenorphine 40 Test detected the presence of buprenorphine and its metabolites (norbuprenorphine and norbuprenorphine glucuronide) along with naloxone metabolites (epkpwboz-2-gyyq-glucuronide and noroxymorphone/nornaloxone). Suspect use of buprenorphine with naloxone (e.g. Suboxone) within the past three days. ADDITIONAL INFORMATION This test was developed and its performance characteristics determined by [facility] in a manner consistent with CLIA requirements. This test has not been cleared or approved by the U.S. Food and Drug Administration. Test Performed by: [facility] - [address] [address] 41 Result in log IU/mL is 5.44. ADDITIONAL INFORMATION The quantification range of this assay is 15 to 100,000,000 IU/mL (1.18 log to 8.00 log IU/mL). Testing was performed using the keyana HCV test ([employer] with the keyana Lat490 System. Test Performed by: [facility] - [address] [id number] ADDITIONAL INFORMATION This test was performed using the [employer] RealTime HCV Genotype II assay ([employer] [place], [place]). Test Performed by: [facility] - [address] [id number] 43 REFERENCE VALUE Cutoff: 500 44 REFERENCE VALUE Cutoff: 200 45 REFERENCE VALUE Cutoff: 100 46 REFERENCE VALUE Cutoff: 150 47 ADDITIONAL INFORMATION This report is intended for use in clinical monitoring or management of patients. It is not intended for use in employment-related testing. 48 REFERENCE VALUE Cutoff: 200 mg/L 49 Tylenol 3 50 Metabolite of codeine REFERENCE VALUE Cutoff: 100 51 Mary Duffy, MS Contin; Also a minor metabolite (10%) of codeine and can be seen in low concentrations (<2,000 ng/mL) with poppy seed ingestion. 52 Metabolite of morphine REFERENCE VALUE Cutoff: 100 53 Metabolite of heroin 54 Lortab, Charlotte, Vicodin; Also a very minor metabolite of codeine and impurity (<1%) of oxycodone. 55 Metabolite of hydrocodone 56 Metabolite of hydrocodone 57 Dilaudid, Exalgo; Also a metabolite of hydrocodone and a minor (<5%) metabolite of morphine. 58 Metabolite of hydromorphone REFERENCE VALUE Cutoff: 100 59 Endocet, Percocet, Oxycontin 60 Metabolite of oxycodone 61 Numorphan, Opana; Also a metabolite of oxycodone. 62 Metabolite of oxymorphone REFERENCE VALUE Cutoff: 100 63 Metabolite of oxymorphone 64 Actiq, Duragesic, Fentora 65 Metabolite of fentanyl 66 Demerol 67 Metabolite of meperidine 68 Narcan 69 Metabolite of naloxone REFERENCE VALUE Cutoff: 100 70 Dolophine 71 Metabolite of methadone 72 Darvon, Darvocet 73 Metabolite of propoxyphene 74 Tradol, Ultram, Ultracet 75 Metabolite of tramadol 76 Nucynta 77 Metabolite of tapentadol 78 Metabolite of tapentadol REFERENCE VALUE Cutoff: 100 79 Results not available due to analyte specific failure. Buprenex, Suboxone 80 Metabolite of buprenorphine 81 Metabolite of buprenorphine 82 Test detected the presence of buprenorphine metabolites (norbuprenorphine and norbuprenorphine glucuronide) along with naloxone metabolite (zomatqpd-4-euhg-glucuronide). Suspect use of buprenorphine with naloxone (e.g. Suboxone) within the past three days. ADDITIONAL INFORMATION This test was developed and its performance characteristics determined by [facility] in a manner consistent with CLIA requirements. This test has not been cleared or approved by the U.S. Food and Drug Administration. Test Performed by: [address] [address] 83 HCV RNA Detect/Quant, S was cancelled on 06/20/2018 at 09:59; Test is cancelled due to insufficient specimen volume. Please submit a frozen specimen under separate order. Test Performed by: [address] [address] 84 It is recognized that currently available assays [...] 95% confidence interval of 99.78 to 99.96%. 85 RESULT: Polyclonal hypergammaglobulinemia Test Performed by: [facility] - [address] [address] 86 Desirable: <150 Borderline High: 150-199 High: 200-499 Very High: >500 87 Desirable: <200 Borderline High: 200-239 High: >239 88 Low: <40 Desirable: 40-60 High: >60 89 Desirable: <100 Near Optimal: 100-129 Borderline High: 130-159 High: 160-189 Very High: >189 90 REFERENCE VALUE Cutoff: 500 91 REFERENCE VALUE Cutoff: 200 92 REFERENCE VALUE Cutoff: 100 93 REFERENCE VALUE Cutoff: 150 94 ADDITIONAL INFORMATION This report is intended for use in clinical monitoring or management of patients. It is not intended for use in employment-related testing. 95 REFERENCE VALUE Cutoff: 200 mg/L 96 Tylenol 3 97 Metabolite of codeine REFERENCE VALUE Cutoff: 100 98 Mary Duffy, MS Contin; Also a minor metabolite (10%) of codeine and can be seen in low concentrations (<2,000 ng/mL) with poppy seed ingestion. 99 Metabolite of morphine REFERENCE VALUE Cutoff: 100 100 Metabolite of heroin 101 Lortab, Charlotte, Vicodin; Also a very minor metabolite of codeine and impurity (<1%) of oxycodone. 102 Metabolite of hydrocodone 103 Metabolite of hydrocodone 104 Dilaudid, Exalgo; Also a metabolite of hydrocodone and a minor (<5%) metabolite of morphine. 105 Metabolite of hydromorphone REFERENCE VALUE Cutoff: 100 106 Endocet, Percocet, Oxycontin 107 Metabolite of oxycodone 108 Numorphan, Opana; Also a metabolite of oxycodone. 109 Metabolite of oxymorphone REFERENCE VALUE Cutoff: 100 110 Metabolite of oxymorphone 111 Actiq, Duragesic, Fentora 112 Metabolite of fentanyl 113 Demerol 114 Metabolite of meperidine 115 Narcan 116 Metabolite of naloxone REFERENCE VALUE Cutoff: 100 117 Dolophine 118 Metabolite of methadone 119 Darvon, Darvocet 120 Metabolite of propoxyphene 121 Tradol, Ultram, Ultracet 122 Metabolite of tramadol 123 Nucynta 124 Metabolite of tapentadol 125 Metabolite of tapentadol REFERENCE VALUE Cutoff: 100 126 Buprenex, Suboxone 127 Metabolite of buprenorphine 128 Metabolite of buprenorphine 129 Test detected the presence of buprenorphine and its metabolites (norbuprenorphine and norbuprenorphine glucuronide) along with naloxone metabolites (nvaayseh-1-qvba-glucuronide and noroxymorphone/nornaloxone). Suspect use of buprenorphine with naloxone (e.g. Suboxone) within the past three days. ADDITIONAL INFORMATION This test was developed and its performance characteristics determined by [facility] in a manner consistent with CLIA requirements. This test has not been cleared or approved by the U.S. Food and Drug Administration. Test Performed by: [facility] - [facility] [address] [place] [address] 130 REFERENCE VALUE Cutoff: 500 131 REFERENCE VALUE Cutoff: 200 132 REFERENCE VALUE Cutoff: 100 133 REFERENCE VALUE Cutoff: 150 134 ADDITIONAL INFORMATION This report is intended for use in clinical monitoring or management of patients. It is not intended for use in employment-related testing. 135 REFERENCE VALUE Cutoff: 200 mg/L 136 Tylenol 3 137 Metabolite of codeine REFERENCE VALUE Cutoff: 100 138 Mary Duffy, MS Contin; Also a minor metabolite (10%) of codeine and can be seen in low concentrations (<2,000 ng/mL) with poppy seed ingestion. 139 Metabolite of morphine REFERENCE VALUE Cutoff: 100 140 Metabolite of heroin 141 Lortab, Charlotte, Vicodin; Also a very minor metabolite of codeine and impurity (<1%) of oxycodone. 142 Metabolite of hydrocodone 143 Metabolite of hydrocodone 144 Dilaudid, Exalgo; Also a metabolite of hydrocodone and a minor (<5%) metabolite of morphine. 145 Metabolite of hydromorphone REFERENCE VALUE Cutoff: 100 146 Endocet, Percocet, Oxycontin 147 Metabolite of oxycodone 148 Numorphan, Opana; Also a metabolite of oxycodone. 149 Metabolite of oxymorphone REFERENCE VALUE Cutoff: 100 150 Metabolite of oxymorphone 151 Actiq, Duragesic, Fentora 152 Metabolite of fentanyl 153 Demerol 154 Metabolite of meperidine 155 Narcan 156 Metabolite of naloxone REFERENCE VALUE Cutoff: 100 157 Dolophine 158 Metabolite of methadone 159 Darvon, Darvocet 160 Metabolite of propoxyphene 161 Tradol, Ultram, Ultracet 162 Metabolite of tramadol 163 Nucynta 164 Metabolite of tapentadol 165 Metabolite of tapentadol REFERENCE VALUE Cutoff: 100 166 Buprenex, Suboxone 167 Metabolite of buprenorphine 168 Metabolite of buprenorphine 169 Test detected the presence of norbuprenorphine and norbuprenorphine glucuronide which are metabolites of buprenorphine. Suspect use of buprenorphine within the past three days. Test detected the presence of norfentanyl (metabolite of fentanyl) only. Suspect use of fentanyl within the past three days. ADDITIONAL INFORMATION This test was developed and its performance characteristics determined by [facility] in a manner consistent with CLIA requirements. This test has not been cleared or approved by the U.S. Food and Drug Administration. Test Performed by: [facility] - [address] [address] Procedures Description No Information Available Encounters Type Date Location Provider Dx Diagnosis Office Visit 10/16/2018 [facility] Yves Castillo B18.2 Chronic viral 10:50a Infectious Diseases Masha Cohen hepatitis C Office Visit 09/27/2018 [facility] George Castillo B18.2 Chronic viral 2:00p Des - Flaco Lima M.D.,[facility] hepatitis C F11.20 Opioid dependence, uncomplicated Z23 Encounter for immunization Office Visit 08/28/2018 2:00p [facility] George Castillo B18.2 Chronic viral Des [facility] M.D.,[facility] hepatitis C [place] F11.20 Opioid dependence, uncomplicated Z23 Encounter for immunization Office Visit 07/17/2018 [facility] George Castillo F11.20 Opioid dependence , 2:00p Des Lima M.D.,[facility] uncomplicated [place] B18.2 Chronic viral hepatitis C Z23 Encounter for immunization Office Visit 06/12/2018 [facility] George Castillo F11.20 Opioid dependence , 2:40p Des Lima M.D.,FACP uncomplicated [place] B18.2 Chronic viral hepatitis C F33.1 Major depressive disorder, recurrent, moderate Office Visit 05/18/2018 2:40p [facility] George Castillo F11.20 Opioid dependence, Des Lima M.D.,FACP uncomplicated [address] B18.2 Chronic viral hepatitis C F33.1 Major depressive disorder, recurrent, moderate Office Visit 04/17/2018 [facility] George Castillo F11.20 Opioid dependence , 3:40p Des Lima M.D.,FACP uncomplicated [place] B18.2 Chronic viral hepatitis C F33.1 Major depressive disorder, recurrent, moderate Office Visit 09/03/2012 2:30p [facility] Scott Montes M.D. 724.2 Lumbago AT [place] Office Visit 08/20/2012 2:30p [facility] Scott Montes M.D. 724.2 Lumbago AT [place] Plan of Treatment Future Appointment(s):12/28/2018 4:40 pm - George Lima M.D.,FACP at [facility] - [address]/25/2018 - Yves Cohen M.D.B18.2 Chronic viral hepatitis CComments:HCV VL today; assuming it is undetected will repeat 3 months after she finishes treatment
[2018-12-26 12:04] VITALS: BP 117/47
--- NOTE | 2018-12-26 12:17 | UC ---
UC General HPI - HPI Summary HPI Summary: Pt presents with c/o sudden onset of feeling light headed, weakness that began at work today while walking. Pt states she has not eaten breakfast this morning , smokes, and identified that she has increased stress in her life. Pt also reports that she did not sleep well last night. Pt is concerned that her BP is low. She was seen at doctor's office yesterday that told her her pressure was low. Range within: 100's/50-60's . - History of Current Complaint Chief Complaint: UCGeneralIllness Stated Complaint: HEADACHE, LIGHT HEADED, LOW BLOOD PRESSURE Time Seen by Provider: 12/26/18 11:47 Hx Obtained From: Patient Hx Last Menstrual Period: "last week" Onset/Duration: Sudden Onset, Resolved Timing: Constant Onset Severity: Moderate Current Severity: None Pain Intensity: 0 Associated Signs & Symptoms: Positive: Dizziness, Weakness - Allergy/Home Medications Allergies/Adverse Reactions: Allergies Allergy/AdvReac Type Severity Reaction Status Date / Time clindamycin Allergy Intermediate Rash Verified 12/26/18 11:09 Sulfa (Sulfonamide Allergy Intermediate Rash Verified 12/26/18 11:09 Antibiotics) Home Medications: Home Medications Glecaprevir/Pibrentasvir [Mavyret 100-40 mg Tablet] 3 tab PO DAILY 12/26/18 [ History Confirmed 12/26/18] Naproxen Sodium [Aleve] 440 mg PO Q12H PRN 12/26/18 [History Confirmed 12/26/18] PMH/Surg Hx/FS Hx/Imm Hx Previously Healthy: Yes GI/ History: Other - hepatitis C - Surgical History Surgical History: Yes Surgery Procedure, Year, and Place: Left Lower Lobeectomy s/p Blastoma, 1984, [place] - Family History Known Family History: Positive: Hypertension - Social History Occupation: Employed Full-time Lives: With Family Alcohol Use: None Substance Use Type: None Substance Use Comment - Amount & Last Used: on Suboxone Smoking Status (MU): Heavy Every Day Tobacco Smoker Type: Cigarettes Amount Used/How Often: 1 PPD Length of Time of Smoking/Using Tobacco: Since Age 12 Have You Smoked in the Last Year: Yes Review of Systems All Other Systems Reviewed And Are Negative: Yes Constitutional: Positive: Fatigue Skin: Positive: Negative Eyes: Positive: Negative ENT: Positive: Negative Respiratory: Positive: Negative Cardiovascular: Positive: Negative Gastrointestinal: Positive: Negative Genitourinary: Positive: Negative Motor: Positive: Negative Neurovascular: Positive: Negative Musculoskeletal: Positive: Negative Neurological: Positive: Weakness Psychological: Positive: Negative Is Patient Immunocompromised?: No Physical Exam Triage Information Reviewed: Yes Appearance: Well-Appearing, No Pain Distress Vital Signs: Initial Vital Signs Temp 98 F 12/26/18 11:07 Pulse 66 12/26/18 11:07 Resp 16 12/26/18 11:07 BP 118/51 12/26/18 11:07 Pulse Ox 100 12/26/18 11:07 Vital Signs Reviewed: Yes Eye Exam: Normal, Other - Pupils equal and reactive bilateral ENT Exam: Normal Dental Exam: Normal Neck exam: Normal Respiratory Exam: Normal Cardiovascular Exam: Normal Musculoskeletal Exam: Normal Neurological Exam: Normal Psychological Exam: Normal Skin Exam: Normal Course/Dx - Differential Dx - Multi-Symptom Differential Diagnoses: Other - dizziness - Diagnoses Provider Diagnosis: Weakness, Dizziness, Stress Discharge - Sign-Out/Discharge Documenting (check all that apply): Patient Departure All imaging exams completed and their final reports reviewed: No Studies - Discharge Plan Condition: Stable Disposition: HOME Patient Education Materials: Weakness (ED), Lightheadedness (ED) Forms: *Work Release Referrals: George Lima MD [Primary Care Provider] - If Needed Additional Instructions: PLEASE NOTE IF SYMPTOMS DO NOT IMPROVE OR THEY WORSEN, PLEASE SEEK CARE AT THE CLOSEST EMERGENCY ROOM SOON POSSIBLE. - Billing Disposition and Condition Condition: STABLE Disposition: Home
== END 2018-12-26 12:34 | disposition home or self-care (01) ==
LOC: UCCORT 10:50
DX: R42 Dizziness and giddiness (principal); R53.1 Weakness; F43.9 Reaction to severe stress, unspecified; F17.210 Nicotine dependence, cigarettes, uncomplicated; R51 Headache; Z88.1 Allergy status to other antibiotic agents; Z88.2 Allergy status to sulfonamides
CPT/HCPCS: 99212; G0463